=== PATIENT | male | born 1975 | race African-American/Black ===

== ENCOUNTER 2016-12-15 04:07 | Emergency (ER) | payer MEDICAID ==
[~2016-12-15] VITALS: Ht 177.8 cm; Wt 65.0 kg
[2016-12-15] MEDS ORDERED: SODIUM CHLORIDE 0.9% 1,000 ML IV ONE (07:45)
[2016-12-15] MEDS ORDERED: ONDANSETRON HCL 4MG/2ML VIAL IV ONE (07:45)
[2016-12-15] MEDS ORDERED: KETOROLAC 30MG/ML VIAL IV ONE (07:45)
[2016-12-15] MEDS ORDERED: MORPHINE SULFATE 4 MG/ML CPJ (NOT FOR IM USE) IV ONE (07:45)
[2016-12-15] MEDS ORDERED: MORPHINE SULFATE 2 MG/ML CPJ (NOT FOR IM USE) IV ONE ×2 (08:00)
[2016-12-15 08:11] LABS: BASOPHILS % 1.2 % (0.0-2.0); CARBON DIOXIDE 25 mEq/L (21-32); CHLORIDE 105 mEq/L (98-107); EOSINOPHILS % 2.8 % (0.0-5.0); HEMATOCRIT. 33.7 % (42.0-52.0); HEMOGLOBIN. 11.7 g/dL (14.0-18.0); MEAN CORPUSCULAR HEMOGLOBIN 29.7 pg (28.0-32.0); MEAN CORPUSCULAR VOLUME 85.4 fL (80.0-94.0); MEAN PLATELET VOLUME 7.4 fl (7.4-10.4); MONOCYTES % 10.3 % (2.0-8.0); NEUTROPHILS % 59.7 % (40.0-76.0); PLATELET 381 x1000/uL (130-400); RED BLOOD CELL COUNT 3.94 mill/uL (4.7-6.1); RED CELL DISTRIBUTION WIDTH 17.8 % (11.6-14.6)
[2016-12-15] MEDS ORDERED: POTASSIUM CHLORIDE 20MEQ TABLET SR PO ONE (10:30)
[2016-12-15 11:10] VITALS: BP 114/64
== END 2016-12-15 11:14 | disposition home or self-care (01) ==
LOC: ER 04:17
DX: D57.00 Hb-SS disease with crisis, unspecified (principal); R07.9 Chest pain, unspecified; F17.200 Nicotine dependence, unspecified, uncomplicated
CPT/HCPCS: 36415; 71010; 80053; 85025; 85044; 93005; 96361; 96374; 96375; 99285; J1885; J2270; J2405; J7030; Z7610